=== PATIENT | female | born 1965 | race Caucasian/White ===

== ENCOUNTER 2017-05-02 17:29 | Emergency (ER) | payer SELFPAY ==
[2017-05-02 17:43] VITALS: O2SAT 98; BMI 32.2
--- NOTE | 2017-05-02 19:18 | C.PDOC ---
History Of Present Illness 51 year old female presents to the ED for evaluation of bilateral foot pain, left greater than right. Patient reports she has had flare ups of this pain occasionally over the past 2 years. She has been told in the past that she has gout. Pain described as burning and throbbing to bottom of her feet. She has also noticed thickening of her nails. No injuries. Time Seen by Provider: 05/02/17 17:59 Chief Complaint (Nursing): Lower Extremity Problem/Injury History Per: Patient History/Exam Limitations: no limitations Onset/Duration Of Symptoms: Intermittent Episodes (2 years) Past Medical History Reviewed: Historical Data, Nursing Documentation, Vital Signs Vital Signs: Last Vital Signs Temp 97.9 F 05/02/17 19:31 Pulse 102 H 05/02/17 19:31 Resp 18 05/02/17 19:31 BP 156/89 H 05/02/17 19:31 Pulse Ox 98 05/02/17 19:39 - Medical History Other PMH: gout Family History: States: Unknown Family Hx - Social History Hx Alcohol Use: No Hx Substance Use: No - Immunization History Hx Tetanus Toxoid Vaccination: No Hx Influenza Vaccination: No Hx Pneumococcal Vaccination: No Review Of Systems Except As Marked, All Systems Reviewed And Found Negative. Musculoskeletal: Positive for: Foot Pain Physical Exam - Physical Exam Appears: Well, No Acute Distress Skin: Warm, Dry, No Rash Head: Atraumatic, Normacephalic Eye(s): bilateral: Normal Inspection, EOMI Neck: Normal ROM Chest: Symmetrical Extremity: Normal ROM, Tenderness (left press tender star signal to medial plantar surface), No Calf Tenderness, Other (hyperkeratotic left great toenail, yellow in color and distal nail plate is lifting, No redness, No swelling) Pulses: Left Dorsalis Pedis: Normal, Right Dorsalis Pedis: Normal Neurological/Psych: Oriented x3, Normal Speech ED Course And Treatment O2 Sat by Pulse Oximetry: 98 (room air) Pulse Ox Interpretation: Normal Medical Decision Making Medical Decision Making: Impression: foot pain Plan: * Foot xray * Toradol IM * Gabapentin PO Progress: Xray negative for acute fracture or dislocation. Patient reports pain is mildly improving. No signs of cellulitis or acute gout. Symptoms likely neuropathy or plantar fasciitis. Plan is to discharge and have patient follow up with podiatry. Disposition Counseled Patient/Family Regarding: Diagnosis, Need For Followup, Rx Given - Disposition Referrals: Podiatry Clinic [Outside] Disposition: HOME/ ROUTINE Disposition Time: 19:21 Condition: STABLE Additional Instructions: Please follow up with podiatry clinic Prescriptions: Ciclopirox [Penlac] 6.6 ml TP DAILY #1 solution Gabapentin 300 mg PO Q12 #30 capsule traMADol [Ultram] 50 mg PO Q8 #20 tab Instructions: Diabetic Neuropathy (ED) Forms: [facility] (Burmese) - POA Present On Arrival: None - Clinical Impression Clinical Impression: Neuropathy, Tinea, Foot pain
[2017-05-02 19:39] VITALS: BP 156/89; PULSE 102; RESP 18; TEMP 97.9
--- NOTE | 2017-05-03 14:49 | RAD ---
PROCEDURE: Left foot dated 05/02/2017 HISTORY: foot pain plantar surface COMPARISON: No prior FINDINGS: BONES: No evidence of acute displaced fracture nor dislocation. Osseous structures appear grossly intact. Mild hallux valgus deformity with slight overgrowth of the head of the 1st metatarsal and minimal DJD medial aspect 1st MTP joint. JOINTS: As above. SOFT TISSUES: No evidence of subcutaneous emphysema or obvious radiopaque foreign bodies. OTHER FINDINGS: None. IMPRESSION: No acute fractures. Mild hallux valgus deformity with DJD 1st MTP joint as above.
== END 2017-05-02 19:35 | disposition home or self-care (01) ==
LOC: C.ER 17:29
DX: G62.9 Polyneuropathy, unspecified (principal); B35.9 Dermatophytosis, unspecified; M79.672 Pain in left foot
CPT/HCPCS: 73630; 96372; 99284; J1885